=== PATIENT | male | born 1975 | race Caucasian/White ===

== ENCOUNTER 2025-01-31 02:15 | Outpatient (CLI) | payer MEDICAID, SELFPAY ==
[2025-01-31 12:11] LABS: HCT 45.8 % (40.0-50.0); MCH 29.2 pg (27.0-33.0); MCHC 32.8 % (32.0-36.0); MCV 89 fL (80-95); MPV 9.5 fL (8.0-11.0); Platelet Count 326 10^3/uL (130-400); RBC 5.13 10^6/uL (4.36-5.78); RDW 12.8 % (11.8-14.1); RDW-SD 41.9 fL; WBC 10.67 10^3/uL (4.4-10.8)
[2025-01-31 12:50] LABS: ALT 33 U/L (16-63); AST 15 U/L (15-37); Albumin 3.9 g/dL (3.4-5.0); Alkaline Phosphatase 101 U/L (46-116); Anion Gap 12.1 mmol/L (3-11); BUN 21 mg/dL (7-18); Bilirubin, Total 0.3 mg/dL (0.2-1.0); CO2 24.9 mmol/L (21.0-32.0); CREATININE 1.2 mg/dL (0.70-1.30); Calcium 9.4 mg/dL (8.5-10.1); Chloride 104 mmol/L (98-107); FREE T4 1.09 ng/dL (0.76-1.46); Glucose 170 mg/dL (74-106); Potassium 3.8 mmol/L (3.5-5.1); Sodium 141 mmol/L (136-145); TSH 2.32 uIU/mL (0.36-3.74); Total Protein 7.9 g/dL (6.4-8.2)
[2025-01-31 13:35] LABS: COMMENT (LAB VIEW ONLY) 26.37 mg/dL; Microalb ug/mg Crea 12.5 ug/mg Cr
[2025-01-31 13:40] LABS: Calculated LDL 33 mg/dL (<100); Cholesterol 112 mg/dL (<200); HDL Cholesterol 41 mg/dL (>or=40); Triglyceride 190 mg/dL (<150)
[2025-02-01 10:08] LABS: HBs Antibody, Quant <3.1 mIU/mL (See Note); Hep B Surface Ab Negative (See Note); Hepatitis B Core Antibody Negative (Negative); Hepatitis B Surface Antigen Negative (Negative)
[2025-02-01 10:19] LABS: Hepatitis C Ab w Rflx HCV PCR Negative (Negative)
[2025-02-01 10:52] LABS: HIV-1/2 Ag & Ab Screen Negative (Negative)
== END 2025-01-31 02:16 | disposition home or self-care (01) ==
LOC: LOS 02:15
PROVIDERS: PCP Nurse Practitioner Family; Referring Provider Student in an Organized Health Care Education/Training Program; Visit Provider Student in an Organized Health Care Education/Training Program
DX: Z11.4 Encounter for screening for human immunodeficiency virus [HIV] (principal); Z11.59 Encounter for screening for other viral diseases; E03.9 Hypothyroidism, unspecified; E11.65 Type 2 diabetes mellitus with hyperglycemia; Z79.4 Long term (current) use of insulin
CPT/HCPCS: 36415; 80053; 80061; 85027; 86704; 86706; 86803; 87340; 87389; 82043; 82570; 84439; 84443